=== PATIENT | female | born 1985 | race Two or more races ===

== ENCOUNTER 2018-07-02 21:16 | Emergency (ER) | payer MEDICAID ==
[~2018-07-02] VITALS: Ht 157.5 cm; Wt 113.4 kg
--- NOTE | 2018-07-02 21:22 | Emergency Room Report ---
History of Present Illness General Chief Complaint: Alcohol Intoxication Source: Patient Present Illness HPI Is a 32-year-old female with no significant past medical history. She was brought in by EMS for chief complaint of alcohol intoxication. She was informed somebody's lawn and was very intoxicated. That person called 911. Patient admit to drinking alcohol tonight. She's been drinking because she was involved in an argument with her boyfriend/. No trauma. History is otherwise limited because of her intoxication. No other complaint. Allergies: Coded Allergies: No Known Allergies (Unverified , 07/02/18) Patient History Past Medical History: see triage record, old chart reviewed Past Surgical History: none Pertinent Family History: none Social History: Denies: smoking Last Menstrual Period: 06/30/2018 Now: No : 0 Para: 0 Immunizations: other Reviewed Nursing Documentation: PMH: Agreed; PSxH: Agreed Nursing Documentation-PMH Past Medical History: No Stated History Review of Systems Gastrointestinal: Reports: nausea, vomiting All Other Systems: limited - Limited secondary to intoxicatio Physical Exam Vital Signs Date Time Temp Pulse Resp B/P (MAP) Pulse Ox O2 Delivery O2 Flow Rate FiO2 07/02/18 21:08 97.9 102 16 104/59 97 Room Air vitals normal Sp02 EP Interpretation: reviewed, normal General Appearance: normal inspection, well appearing, obese Head: normocephalic, atraumatic Eyes: bilateral eye PERRL, bilateral eye EOMI ENT: hearing grossly normal, normal pharynx Neck: full range of motion, supple, no meningismus Respiratory: chest non-tender, lungs clear, normal breath sounds Cardiovascular #1: regular rate, rhythm, no murmur Gastrointestinal: normal bowel sounds, non tender, no mass, no organomegaly, no bruit, non-distended Musculoskeletal: back normal, normal range of motion Neurologic: grossly normal Psychiatric: mood/affect normal Skin: warm/dry Medical Decision Making Diagnostic Impression: Primary Impression: Acute alcoholic intoxication Qualified Codes: F10.929 - Alcohol use, unspecified with intoxication, unspecified ER Course Patient with alcohol intoxication. No evidence of any trauma to warrant x-ray or CT scan. We'll discharge home once she is clinically sober. Last Vital Signs Date Time Temp Pulse Resp B/P (MAP) Pulse Ox O2 Delivery O2 Flow Rate FiO2 07/02/18 21:08 97.9 102 16 104/59 97 Room Air Status: improved Disposition: HOME, SELF-CARE Condition: Stable Scripts No Active Prescriptions or Reported Meds Patient Instructions: Alcohol Intoxication, [id number] Additional Instructions: Do not drink to excess. Follow-up with rehabilitation. I'll woke up with your DrLefty in one week. Return if symptom worsen. Landon Abdi MD Jul 02, 2018 21:22
[2018-07-02 21:44] VITALS: BP 104/59
[2018-07-03 01:35] VITALS: BP 112/74
[2018-07-03 04:50] VITALS: BP 118/74
[2018-07-03 05:05] VITALS: BP 112/74
== END 2018-07-03 05:05 | disposition home or self-care (01) ==
LOC: EDBD 21:16 → EMR 21:46
DX: F10.929 Alcohol use, unspecified with intoxication, unspecified (principal); F17.200 Nicotine dependence, unspecified, uncomplicated
CPT/HCPCS: 36415; 80329; 99283